=== PATIENT | male | born 1980 | race Caucasian/White ===

== ENCOUNTER 2018-01-22 03:31 | Emergency (ER) | payer MEDICAID ==
[2018-01-22 03:45] VITALS: RESP 18
--- NOTE | 2018-01-22 04:16 | C.PDOC ---
History Of Present Illness 37 year old male with PMHx of poor dentition presents to the ED c/o pain and swelling to the right upper teeth. Patient denies fever, chills, drainage, facial swelling, injury, fall, trauma. Time Seen by Provider: 01/22/18 03:44 Chief Complaint (Nursing): Dental Pain History Per: Patient History/Exam Limitations: no limitations Onset/Duration Of Symptoms: Days Current Symptoms Are (Timing): Still Present Quality: Positive for: "Pain" Recent travel outside of the [place]: No Additional History Per: Patient Past Medical History Reviewed: Historical Data, Nursing Documentation, Vital Signs Vital Signs: Last Vital Signs Temp 97.9 F 01/22/18 03:43 Pulse 82 01/22/18 03:43 Resp 18 01/22/18 03:43 BP 145/90 01/22/18 03:43 Pulse Ox 97 01/22/18 04:48 - Medical History PMH: Diabetes Surgical History: Appendectomy Family History: States: Unknown Family Hx - Social History Hx Tobacco Use: No Hx Alcohol Use: No Hx Substance Use: No - Immunization History Hx Tetanus Toxoid Vaccination: No Hx Influenza Vaccination: Yes Hx Pneumococcal Vaccination: Yes Review Of Systems Constitutional: Negative for: Fever, Chills ENT: Positive for: Mouth Pain, Mouth Swelling Cardiovascular: Negative for: Palpitations Respiratory: Negative for: Shortness of Breath Skin: Negative for: Rash Neurological: Negative for: Weakness, Numbness Physical Exam - Physical Exam Appears: Non-toxic, No Acute Distress Skin: Normal Color, Warm, Dry Head: Atraumatic, Normacephalic Eye(s): bilateral: Normal Inspection Nose: No Discharge Oral Mucosa: Moist, No Trismus Lips: No Swelling Teeth: Tender To Palpation (right lateral incisor ) Gingiva: Swelling (mild), No Bleeding Throat: Normal, No Erythema, No Exudate Neck: Normal ROM, Supple Chest: Symmetrical Cardiovascular: Rhythm Regular, No Friction Rub, No Murmur Respiratory: Normal Breath Sounds, No Rales, No Rhonchi, No Wheezing Gastrointestinal/Abdominal: Soft, No Tenderness, No Guarding, No Rebound Extremity: Normal ROM, No Tenderness, No Swelling Neurological/Psych: Oriented x3, Normal Motor, Normal Sensation Gait: Steady ED Course And Treatment O2 Sat by Pulse Oximetry: 97 (On RA) Pulse Ox Interpretation: Normal Medical Decision Making Medical Decision Making: Plan: * Amoxicillin 500 mg PO * Toradol 30 mg IM On re-exam, the patient reports improvement of pain. Disposition - Disposition Referrals: Armando Garcia DMD [Staff Provider] - Carmen Isaac DMD [Staff Provider] - Disposition: HOME/ ROUTINE Disposition Time: 04:57 Condition: GOOD Additional Instructions: Follow up with the Dentist within 1-2 days. Return if worsened. 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 - Scribe Statement The provider has reviewed the documentation as recorded by the Scribe Nuno Amaya All medical record entries made by the Scribe were at my direction and personally dictated by me. I have reviewed the chart and agree that the record accurately reflects my personal performance of the history, physical exam, medical decision making, and the department course for this patient. I have also personally directed, reviewed, and agree with the discharge instructions and disposition.
[2018-01-22 05:16] VITALS: BP 139/88; PULSE 88; TEMP 98; O2SAT 98
== END 2018-01-22 05:23 | disposition home or self-care (01) ==
LOC: C.ER 03:31 → SUPCPDRO 03:31 → C.ER 05:23
DX: K04.7 Periapical abscess without sinus (principal); K02.9 Dental caries, unspecified
CPT/HCPCS: 96372; 99283; J1885